=== PATIENT | female | born 1995 | race African-American/Black ===

== ENCOUNTER 2017-12-18 14:17 | Observation (INO) ==
[2017-12-18 15:25] LABS: Basophils # 0.1 K/mcL (0.0-0.2); Basophils % 0.6 %; Eosinophils # 0.5 K/mcL (0.0-0.6); Eosinophils % 5.5 %; Hematocrit 37.6 % (35.3-44.9); Hemoglobin 12.7 g/dL (11.5-15.4); Immature Granulocytes % 0.2 % (0-4); Lymphocytes # 1.8 K/mcL (0.6-4.6); Lymphocytes % 19.7 %; Mean Corpuscular HGB Conc 33.8 g/dL (31.6-35.5); Mean Corpuscular Hemoglobin 28.9 pg (28.0-33.3); Mean Corpuscular Volume 85.6 fL (83.0-100.0); Monocytes # 0.7 K/mcL (0.0-1.3); Monocytes % 7.7 %; Platelet Count 314 K/mcL (140-400); Red Blood Count 4.39 M/mcL (3.82-4.97); Red Cell Distribution Width 14.2 % (11.5-14.5); Segmented Neutrophils % 66.3 %
[2017-12-18 15:42] LABS: Bilirubin,Urine Negative (Negative); Blood,Urine Negative (Negative); Clarity,Urine Clear (Clear); Color,Urine Yellow (Yellow); Glucose,Urine (UA) Normal (Normal); Ketones,Urine Negative (Negative); Leukocyte Esterase,Urine Negative (Negative); Nitrite,Urine Negative (Negative); PH,Urine 7.5 pH Units (5.0-8.0); Protein,Urine Negative (Neg-Trace); Urobilinogen,Urine Normal (Normal)
[2017-12-18 15:43] LABS: BUN/Creatinine Ratio 7 (6-26); Blood Urea Nitrogen 4 mg/dL (6-20); Calcium 9.2 mg/dL (8.6-10.3); Carbon Dioxide 25 mEq/L (23-29); Chloride 108 mEq/L (98-107); Glucose 82 mg/dL (70-105); Osmolality,Calculated 282 (280-300); Potassium 3.7 mEq/L (3.5-5.1); Sodium 138 mEq/L (136-145); Troponin I < 0.03 ng/mL (< 0.04); eGFR For African Americans > 60 (> 60); eGFR For Non-African Americans > 60 (> 60)
--- NOTE | 2017-12-18 15:44 | Emergency Department Note ---
Disposition Clinical Impression: Cough Chest pain Qualifiers: Chest pain type: unspecified Qualified Code(s): R07.9 - Chest pain, unspecified Syncopal episodes Qualifiers: Syncope type: unspecified Qualified Code(s): R55 - Syncope and collapse Disposition: Admitted As Inpatient Condition: Good Instructions: Chest Pain (ED), Syncope (ED) Referrals: Godwin Galo MD [Family Provider] - NONE,PCP [Primary Care Provider] - Forms: ED Satisfaction Letter Time of Disposition: 16:37 General Adult HPI - General Chief complaint: ED Syncope Stated complaint: CP/possible syncope Time Seen by Provider: 12/18/17 14:57 Source: patient Mode of arrival: ambulatory Limitations: no limitations Nursing Notes Reviewed: Yes Vital Signs Reviewed: Yes - History of Present Illness HPI Narrative: Patient is a 22-year-old female that presents emergency Department with chest pain and a syncopal episode. Patient states that she has had a cough for the past week and today she was sitting on the edge of her bed and felt like she was going to throw up so she went to the bathroom and became lightheaded so she laid on the floor. Patient's significant other states that she feels that the patient completely passed out and was not responsive. States that she did regain consciousness. patient reports that she is also having chest pain in the center of her chest without any radiation. Patient states that since her syncopal episode she is continued to have numbness in her left arm. She states that there has been no other numbness or weakness. Patient states that she has had previous syncopal episodes but has never been worked up for this in the past. Pain Scale: 9 - Related Data Previous Rx's Medication Instructions Recorded Amoxicillin 875 mg PO BID #20 tablet 10/22/17 Ibuprofen [Motrin] 600 mg PO Q6-8H PRN #30 tab 10/22/17 Meclizine HCl [Verticalm] 25 mg PO TID PRN #30 tablet 10/22/17 Albuterol Sulfate [Proair 90 mcg IH Q6H #1 aer.[email or web address] 12/16/17 Respiclick] Allergies Allergy/AdvReac Type Severity Reaction Status Date / Time No Known Allergies Allergy Verified 12/18/17 14:21 All systems ED: reviewed and negative except as stated. Cardiovascular: Reports: chest pain Respiratory: Reports: cough, dyspnea Gastrointestinal: Reports: nausea. Denies: abdominal pain, vomiting, diarrhea Past Medical History - Past Medical History Medical history: Reports: asthma Psychiatric history: Reports: no psych history - Social History Smoking Status: Current every day smoker Smokeless Tobacco Status: No Alcohol use: Reports: none Drug use: Reports: none Physical Exam - General Limitations: no limitations General appearance: alert, in no apparent distress - Head Head exam: atraumatic, normocephalic - Eye Eye exam: Present: normal appearance, EOMI - Neck Neck exam: Present: normal inspection, full ROM, trachea midline - Respiratory Respiratory exam: Present: normal lung sounds bilaterally. Absent: respiratory distress, wheezes - Cardiovascular Cardiovascular exam: Present: regular rate, normal rhythm, normal heart sounds, +S1, +S2 - Abdominal Exam Abdominal exam: Present: soft, Non-Tender, normal bowel sounds - Neurological Exam Neurological exam: Present: alert, oriented X3, CN II-XII intact - Expanded Neurological Exam Speech: Present: fluid speech Cranial nerves: EOM function (II, III, IV, ): Normal, facial sensation (V): Normal, facial palsy (VII): Normal, gag reflex (IX): Normal, spinal accessory function (XI): Normal, tongue deviation (XII): Normal Cerebellar function: finger to nose: Normal, heel to charles: Normal Motor strength - LUE: 5/5 Motor strength - RUE: 5/5 Motor strength - LLE: 5/5 Motor strength - RLE: 5/5 Upper motor neuron exam: pronator drift: Absent bilaterally Sensory exam upper extremity: light touch: Abnormal Left (Patient states numbeness on the left upper extremity) Sensory exam lower extremity: light touch: Normal Coma Scale Eye Opening: Spontaneous Coma Scale Motor Response: Obeys Commands Coma Scale Verbal Response: Oriented Coma Scale Total: 15 - Psychiatric Psychiatric exam: Present: normal affect, normal mood - Skin Skin exam: Present: warm, dry, intact Course - Reevaluation(s) Reevaluation #1: I spoke with the patient and we discussed going home versus admission and the patient felt that she needed to be admitted to the hospital and was uncomfortable going home due to the her symptoms and her syncopal episode. Time: 16:36 Vital Signs Temperature 98.4 F 12/18/17 14:18 Pulse Rate 84 12/18/17 14:18 Respiratory Rate 16 12/18/17 14:18 Blood Pressure 149/101 12/18/17 14:18 O2 Sat by Pulse Oximetry 100 12/18/17 14:18 Temperature 98.4 F 12/18/17 14:18 Pulse Rate 84 12/18/17 14:18 Respiratory Rate 16 12/18/17 14:18 Blood Pressure 149/101 12/18/17 14:18 O2 Sat by Pulse Oximetry 100 12/18/17 14:18 Oxygen Delivery Oxygen Delivery Room Air Medical Decision Making - MDM Narrative Medical decision making narrative: Due the patient's only with chest pain and neurological symptoms there is concern for cardiac versus neuro pathology. We will obtain a CBC, BMP, troponin chest x-ray and EKG. Based on the patient having a syncopal episode with sensory deficit in the left upper extremity after that is necessary for the patient to have a CT of the head to rule out possible intracranial pathology. Chest x-ray was negative and the head CT showed no acute intracranial pathology per radiology read. The laboratory testing was unremarkable. After discussion with the patient the patient felt that she needed to be admitted to the hospital and was uncomfortable with being discharged home. I spoke with the hospitalist Dr Calhoun and he has accepted the patient to their service. The patient be admitted to the hospital for further evaluation and management at this time. - Medical Records Medical records reviewed: Yes I reviewed the patient's medical records. - Lab Data Lab results reviewed: Yes I reviewed the patient's lab results. Result diagrams: 12/18/17 15:09 12/18/17 15:09 Lab Results 12/18/17 12/18/17 12/18/17 Range/Units 15: 15:09 15:29 WBC 9.0 (4.3-11.1) K/mcL RBC 4.39 (3.82-4.97) M/mcL Hgb 12.7 (11.5-15.4) g/dL Hct 37.6 (35.3-44.9) % MCV 85.6 (83.0-100.0) fL MCH 28.9 (28.0-33.3) pg MCHC 33.8 (31.6-35.5) g/dL RDW 14.2 (11.5-14.5) % Plt Count 314 (140-400) K/mcL MPV 11.0 (9.4-12.4) fL Immature Gran % 0.2 (0-4) % Seg Neutrophils % 66.3 % Lymphocytes % 19.7 % Monocytes % 7.7 % Eosinophils % 5.5 % Basophils % 0.6 % Neutrophils # 6.0 (1.6-8.9) K/mcL Lymphocytes # 1.8 (0.6-4.6) K/mcL Monocytes # 0.7 (0.0-1.3) K/mcL Eosinophils # 0.5 (0.0-0.6) K/mcL Basophils # 0.1 (0.0-0.2) K/mcL Sodium 138 (136-145) mEq/L Potassium 3.7 (3.5-5.1) mEq/L Chloride 108 H (98-107) mEq/L Carbon Dioxide 25 (23-29) mEq/L BUN 4 L (6-20) mg/dL Creatinine 0.61 (0.60-1.20) mg/dL Est GFR ( Amer) > 60 (> 60) Est GFR (Non-Af Amer) > 60 (> 60) BUN/Creatinine Ratio 7 (6-26) Glucose 82 (70-105) mg/dL Calculated Osmolality 282 (280-300) Calcium 9.2 (8.6-10.3) mg/dL Troponin I < 0.03 (< 0.04) ng/mL Urine Color Yellow (Yellow) Urine Clarity Clear (Clear) Urine pH 7.5 (5.0-8.0) pH Units Ur Specific [place] 1.010 (1.010-1.025) Urine Protein Negative (Neg-Trace) mg/dL Urine Glucose (UA) Normal (Normal) mg/dL Urine Ketones Negative (Negative) mg/dL Urine Blood Negative (Negative) Urine Nitrite Negative (Negative) Urine Bilirubin Negative (Negative) Urine Urobilinogen Normal (Normal) mg/dL Ur Leukocyte Esterase Negative (Negative) Ur Culture Indicated? NO (NO) Urine Test (Negative) 12/18/17 Range/Units 15:29 WBC (4.3-11.1) K/mcL RBC (3.82-4.97) M/mcL Hgb (11.5-15.4) g/dL Hct (35.3-44.9) % MCV (83.0-100.0) fL MCH (28.0-33.3) pg MCHC (31.6-35.5) g/dL RDW (11.5-14.5) % Plt Count (140-400) K/mcL MPV (9.4-12.4) fL Immature Gran % (0-4) % Seg Neutrophils % % Lymphocytes % % Monocytes % % Eosinophils % % Basophils % % Neutrophils # (1.6-8.9) K/mcL Lymphocytes # (0.6-4.6) K/mcL Monocytes # (0.0-1.3) K/mcL Eosinophils # (0.0-0.6) K/mcL Basophils # (0.0-0.2) K/mcL Sodium (136-145) mEq/L Potassium (3.5-5.1) mEq/L Chloride (98-107) mEq/L Carbon Dioxide (23-29) mEq/L BUN (6-20) mg/dL Creatinine (0.60-1.20) mg/dL Est GFR ( Amer) (> 60) Est GFR (Non-Af Amer) (> 60) BUN/Creatinine Ratio (6-26) Glucose (70-105) mg/dL Calculated Osmolality (280-300) Calcium (8.6-10.3) mg/dL Troponin I (< 0.04) ng/mL Urine Color (Yellow) Urine Clarity (Clear) Urine pH (5.0-8.0) pH Units Ur Specific [place] (1.010-1.025) Urine Protein (Neg-Trace) mg/dL Urine Glucose (UA) (Normal) mg/dL Urine Ketones (Negative) mg/dL Urine Blood (Negative) Urine Nitrite (Negative) Urine Bilirubin (Negative) Urine Urobilinogen (Normal) mg/dL Ur Leukocyte Esterase (Negative) Ur Culture Indicated? (NO) Urine Test Negative (Negative) - Radiology Data Radiology results reviewed: Yes I reviewed the patient's radiology results. Chest X-Ray 12/18/17 14:22 IMPRESSION: No acute findings D/ / Betty Milian MD / Betty Milian MD Interpreting Provider: Betty Milian MD Head CT 12/18/17 15:31 IMPRESSION: No acute intracranial abnormality. D/ / Carlito Panda MD / Carlito Panda MD Interpreting Provider: Carlito Panda MD - EKG Data EKG #1 EKG attestation: Yes I reviewed and interpreted this EKG. EKG results narrative: EKG shows a sinus rhythm at a rate of 70 bpm, MI interval of 132, QRS duration 98, QTC of 419 with a normal axis. There is evidence of an incomplete right bundle. This is compared to previous EKG on 03/16/15 showed a sinus rhythm at a rate of 60 bpm with the same right bundle-branch pattern.
--- NOTE | 2017-12-18 16:05 | Emergency Department Note ---
Disposition Clinical Impression: Cough Chest pain Qualifiers: Chest pain type: unspecified Qualified Code(s): R07.9 - Chest pain, unspecified Syncopal episodes Qualifiers: Syncope type: unspecified Qualified Code(s): R55 - Syncope and collapse Disposition: Home, Self-Care Condition: Good Instructions: Chest Pain (ED), Syncope (ED) Forms: ED Satisfaction Letter General Adult HPI - General Chief complaint: ED Syncope Stated complaint: CP/possible syncope Time Seen by Provider: 12/18/17 14:57 Source: patient Mode of arrival: ambulatory Limitations: no limitations Nursing Notes Reviewed: Yes Vital Signs Reviewed: Yes - History of Present Illness Pain Scale: 9 - Related Data Previous Rx's Medication Instructions Recorded Amoxicillin 875 mg PO BID #20 tablet 10/22/17 Ibuprofen [Motrin] 600 mg PO Q6-8H PRN #30 tab 10/22/17 Meclizine HCl [Verticalm] 25 mg PO TID PRN #30 tablet 10/22/17 Albuterol Sulfate [Proair 90 mcg IH Q6H #1 aer.pow.[email or web address] 12/16/17 Respiclick] Allergies Allergy/AdvReac Type Severity Reaction Status Date / Time No Known Allergies Allergy Verified 12/18/17 14:21 Cardiovascular: Reports: chest pain Respiratory: Reports: cough, dyspnea Gastrointestinal: Reports: nausea. Denies: abdominal pain, vomiting, diarrhea Past Medical History - Past Medical History Medical history: Reports: asthma Psychiatric history: Reports: no psych history - Social History Smoking Status: Current every day smoker Smokeless Tobacco Status: No Alcohol use: Reports: none Drug use: Reports: none Physical Exam - General Limitations: no limitations General appearance: alert, in no apparent distress Course - Reevaluation(s) Reevaluation #1: Saw patient with Dr. Landeros. I examined this patient and my medical decision-making was reviewed with the Resident Physician. I agree with the documented findings, disposition and treatment plan as described. This is a 22 year-old female with history of asthma who became nauseated and lightheaded at rest about 2 hours ago. It sounds like she had a syncopal or near -syncopal episode, without falling or sustaining any secondary injury. She reports a minimally productive cough, exertional dyspnea, and sharp chest pain ( mainly when coughing) for the past week. She reported some left upper extremity numbness earlier, but doesn't seem to have this symptom now. Overall, symptoms are improving since arrival in the ED. She denies any associated headache, vision changes, weakness, fever, nausea/vomiting, hemoptysis, leg pain or swelling. On exam, patient is comfortable, stable vitals. Heart, lung, and neuro exams normal. Patient is PERC-negative. We will check EKG, CXR, head CT (because of the numbness she was feeling earlier ), and with continued symptomatic improvement, discharge. Time: 15:59 Vital Signs Temperature 98.4 F 12/18/17 14:18 Pulse Rate 84 12/18/17 14:18 Respiratory Rate 16 12/18/17 14:18 Blood Pressure 149/101 12/18/17 14:18 O2 Sat by Pulse Oximetry 100 12/18/17 14:18 Temperature 98.4 F 12/18/17 14:18 Pulse Rate 84 12/18/17 14:18 Respiratory Rate 16 12/18/17 14:18 Blood Pressure 149/101 12/18/17 14:18 O2 Sat by Pulse Oximetry 100 12/18/17 14:18 Oxygen Delivery Oxygen Delivery Room Air Medical Decision Making - Lab Data Lab results reviewed: Yes I reviewed the patient's lab results. Result diagrams: 12/18/17 15:09 12/18/17 15:09 Lab Results 12/18/17 12/18/17 12/18/17 Range/Units 15:09 15:09 15:29 WBC 9.0 (4.3-11.1) K/mcL RBC 4.39 (3.82-4.97) M/mcL Hgb 12.7 (11.5-15.4) g/dL Hct 37.6 (35.3-44.9) % MCV 85.6 (83.0-100.0) fL MCH 28.9 (28.0-33.3) pg MCHC 33.8 (31.6-35.5) g/dL RDW 14.2 (11.5-14.5) % Plt Count 314 (140-400) K/mcL MPV 11.0 (9.4-12.4) fL Immature Gran % 0.2 (0-4) % Seg Neutrophils % 66.3 % Lymphocytes % 19.7 % Monocytes % 7.7 % Eosinophils % 5.5 % Basophils % 0.6 % Neutrophils # 6.0 (1.6-8.9) K/mcL Lymphocytes # 1.8 (0.6-4.6) K/mcL Monocytes # 0.7 (0.0-1.3) K/mcL Eosinophils # 0.5 (0.0-0.6) K/mcL Basophils # 0.1 (0.0-0.2) K/mcL Sodium 138 (136-145) mEq/L Potassium 3.7 (3.5-5.1) mEq/L Chloride 108 H (98-107) mEq/L Carbon Dioxide 25 (23-29) mEq/L BUN 4 L (6-20) mg/dL Creatinine 0.61 (0.60-1.20) mg/dL Est GFR ( Amer) > 60 (> 60) Est GFR (Non-Af Amer) > 60 (> 60) BUN/Creatinine Ratio 7 (6-26) Glucose 82 (70-105) mg/dL Calculated Osmolality 282 (280-300) Calcium 9.2 (8.6-10.3) mg/dL Troponin I < 0.03 (< 0.04) ng/mL Urine Color Yellow (Yellow) Urine Clarity Clear (Clear) Urine pH 7.5 (5.0-8.0) pH Units Ur Specific [place] 1.010 (1.010-1.025) Urine Protein Negative (Neg-Trace) mg/dL Urine Glucose (UA) Normal (Normal) mg/dL Urine Ketones Negative (Negative) mg/dL Urine Blood Negative (Negative) Urine Nitrite Negative (Negative) Urine Bilirubin Negative (Negative) Urine Urobilinogen Normal (Normal) mg/dL Ur Leukocyte Esterase Negative (Negative) Ur Culture Indicated? NO (NO) Urine Test (Negative) 12/18/17 Range/Units 15:29 WBC (4.3-11.1) K/mcL RBC (3.82-4.97) M/mcL Hgb (11.5-15.4) g/dL Hct (35.3-44.9) % MCV (83.0-100.0) fL MCH (28.0-33.3) pg MCHC (31.6-35.5) g/dL RDW (11.5-14.5) % Plt Count (140-400) K/mcL MPV (9.4-12.4) fL Immature Gran % (0-4) % Seg Neutrophils % % Lymphocytes % % Monocytes % % Eosinophils % % Basophils % % Neutrophils # (1.6-8.9) K/mcL Lymphocytes # (0.6-4.6) K/mcL Monocytes # (0.0-1.3) K/mcL Eosinophils # (0.0-0.6) K/mcL Basophils # (0.0-0.2) K/mcL Sodium (136-145) mEq/L Potassium (3.5-5.1) mEq/L Chloride (98-107) mEq/L Carbon Dioxide (23-29) mEq/L BUN (6-20) mg/dL Creatinine (0.60-1.20) mg/dL Est GFR ( Amer) (> 60) Est GFR (Non-Af Amer) (> 60) BUN/Creatinine Ratio (6-26) Glucose (70-105) mg/dL Calculated Osmolality (280-300) Calcium (8.6-10.3) mg/dL Troponin I (< 0.04) ng/mL Urine Color (Yellow) Urine Clarity (Clear) Urine pH (5.0-8.0) pH Units Ur Specific [place] (1.010-1.025) Urine Protein (Neg-Trace) mg/dL Urine Glucose (UA) (Normal) mg/dL Urine Ketones (Negative) mg/dL Urine Blood (Negative) Urine Nitrite (Negative) Urine Bilirubin (Negative) Urine Urobilinogen (Normal) mg/dL Ur Leukocyte Esterase (Negative) Ur Culture Indicated? (NO) Urine Test Negative (Negative) - Radiology Data Radiology results reviewed: Yes I reviewed the patient's radiology results. CXR IMPRESSION: No acute findings - EKG Data EKG #1 EKG attestation: Yes I reviewed and interpreted this EKG. EKG results narrative: RSR' in V1 Rate: normal Rhythm: NSR [place]/QRS: normal Interpretation: normal EKG
--- NOTE | 2017-12-18 17:56 | Internal Med History&Physical ---
Date of Encounter: 12/18/17 Time of Encounter: 17:53 Internal Medicine - H&P: HPI Chief complaint: syncope Admitted From: Emergency Dept Plans for Post Hospital Care: Home History of present illness: Ms. Woodard is a 22 year old female Patient with history of asthma, no other significant medical problem patient had cough for about a week and then today she felt nauseated decide to proceed to bathroom and then became lightheaded and then passed out afterqward felt numbness of the left arm which is now resolved no seizure activity and then brought to the emergency room emergency room vital signs BP f 149/101 pulses 84 exam is unremarkable patient been admitted for follow evaluation. Denies any chest pain no known cardiac issues EKG is unremarkable Past Med Surg Social Fam HX - Past Medical History Medical history: asthma Psychiatric history: no psych history - Social History Smoking Status: Current every day smoker Smokeless Tobacco Status: No Alcohol use: none Drug use: none Internal Medicine - H&P: Meds No Known Home Drugs 12/18/17 [History] 3 Allergy/AdvReac Type Severity Reaction Status Date / Time No Known Allergies Allergy Verified 12/18/17 14:21 All Systems PM: A 10-system review of systems was performed and is negative for pertinent findings except as documented above in the HPI. - Constitutional Vitals: Temp Pulse Resp BP Pulse Ox 98.4 F 84 16 149/101 100 12/18/17 14:18 12/18/17 14:18 12/18/17 14:18 12/18/17 14:18 12/18/17 14:18 - Head Head exam: Present: atraumatic, normocephalic - Eye Eye exam: Present: PERRL, conjuntiva pink, sclera anicteric Pupils: Present: PERRL - Neck Neck exam general surgery: Present: supple, trachea midline. Absent: lymphadenopathy - Respiratory Respiratory exam: Present: CTAB. Absent: accessory muscle use, rales, rhonchi, wheezes - Cardiovascular Cardiovascular exam: Present: RRR, +S1, +S2. Absent: diastolic murmur, gallop, rubs, systolic murmur - GI/Abdominal GI/Abdominal exam: Present: normal bowel sounds, soft, no peritoneal signs. Absent: distended, tenderness - Extremities Exam Extremities exam: Present: warm, radial pulses palpable and symmetrical. Absent : calf tenderness, cyanotic, pedal edema - Neurological Exam Neurological exam: Present: CN II-XII intact, oriented X3, no focal deficits. Absent: pronater drift, facial droop, speech deficit - Skin Skin exam: Present: dry, intact Internal Med - H&P Results - Labs CBC & Chem 7: 12/18/17 15:09 12/18/17 15:09 - Assessment and plan (1) Chest pain Current Visit: Yes Status: Acute Assessment and plan: Atypical chest pain following coughing episodes most likely noncardiac Qualifiers: Chest pain type: unspecified Qualified Code(s): R07.9 - Chest pain, unspecified (2) Syncopal episodes Current Visit: Yes Status: Acute Assessment and plan: Syncope preceded by nausea and then lightheadedness but is suggestive of vasovagal varicose syncope versus vasodepressive syncope will obtain 2-D echo and monitor overnight Qualifiers: Syncope type: unspecified Qualified Code(s): R55 - Syncope and collapse (3) Asthma Current Visit: Yes Status: Acute Assessment and plan: No active wheezing at present Qualifiers: Asthma severity: unspecified severity Asthma persistence: unspecified Asthma complication type: unspecified Qualified Code(s): J45.909 - Unspecified asthma, uncomplicated - Time Spent With Patient Total time spent is greater than 50% in coordination of care (as documented) at patient's floor/unit and/or counseling patient:
[2017-12-18] MEDS ORDERED: Naloxone 0.4 MG/ML INJ IVP PRN (18:04)
[2017-12-18] MEDS ORDERED: traMADol 50 MG TABLET PO PRN (18:04)
[2017-12-18] MEDS ORDERED: Acetaminophen 325 MG TABLET PO PRN (18:04)
[2017-12-18 19:36] LABS: Amphetamine Screen,Urine Negative ng/mL (Cutoff=1000); Barbiturate Screen,Urine Negative ng/mL (Cutoff=200); Benzodiazepines Screen,Urine Negative ng/mL (Cutoff=200); Cannabinoid Screen,Urine Positive ng/mL (Cutoff = 50); Cocaine Screen,Urine Negative ng/mL (Cutoff= 300); Opiate Screen,Urine Negative ng/mL (Cutoff=300); Phencyclidine Screen,Urine Negative ng/mL (Cutoff=25)
[2017-12-18] MEDS: Ipratropium/Albuterol Neb 3 ML IH PRN (21:41)
[2017-12-18] MEDS: 0.9 % Sodium Chloride 1,000 ML IVC SCH (22:18)
[2017-12-18] MEDS ORDERED: Nitroglycerin 0.4 MG TAB.SUBL SL PRN (22:57)
--- NOTE | 2017-12-18 23:13 | Event Note ---
Date of Encounter: 12/18/17 Time of Encounter: 23:10 The patient c/o chest pain prior to receiving a breathing treatment. She rates the pain 10/10 and describes it as stabbing. Bp is 119/77, HR is 81. When I entered the room the patient was lying in the bed and appeared comfortable. 12 lead EKG, nitro prn if pain persists, and 1 stat troponin was ordered for now. The patient has serial troponins ordered. Waiting results.
[2017-12-19 02:16] LABS: Alanine Aminotransferase 16 Units/L (7-52); Albumin/Globulin Ratio 1.6 (1.1-2.2); Alkaline Phosphatase 65 Units/L (34-104); Aspartate Amino Transferase 17 Units/L (13-39); BUN/Creatinine Ratio 9 (6-26); Bilirubin,Total 0.2 mg/dL (0.3-1.0); Blood Urea Nitrogen 5 mg/dL (6-20); Carbon Dioxide 25 mEq/L (23-29); Chloride 106 mEq/L (98-107); Chol/HDL Ratio 2.7 (0-4.9); Cholesterol 134 mg/dL (< 200); Globulin 2.5 g/dL (2.4-3.5); Glucose 88 mg/dL (70-105); HDL Cholesterol 50 mg/dL (40-59); LDL Cholesterol,Calculated 67 mg/dL (0-99); Magnesium 1.7 mg/dL (1.6-2.6); Osmolality,Calculated 283 (280-300); Potassium 3.5 mEq/L (3.5-5.1); Sodium 138 mEq/L (136-145); Total Protein 6.5 g/dL (6.4-8.9); Triglycerides 85 mg/dL (< 150); eGFR For African Americans > 60 (> 60); eGFR For Non-African Americans > 60 (> 60)
[2017-12-19] MEDS: 0.9 % Sodium Chloride 1,000 ML IVC SCH ×2 (04:37→08:40)
--- NOTE | 2017-12-19 11:37 | Discharge Summary ---
Orders not resulted at time of discharge: Pending orders 12/18/17 22:56 EKG [ECG 12 lead ECG] [ECG] Stat Date of Encounter: 12/19/17 Time of Encounter: 11:35 - Discharge Diagnosis (1) Chest pain Priority: Secondary Status: Acute Assessment and Plan: atypical chest pain most likely non cardiac Qualifiers: Chest pain type: unspecified Qualified Code(s): R07.9 - Chest pain, unspecified (2) Syncopal episodes Priority: Primary Status: Acute Assessment and Plan: vaso vagal syncope Qualifiers: Syncope type: unspecified Qualified Code(s): R55 - Syncope and collapse (3) Asthma Priority: Secondary Status: Acute Assessment and Plan: no active wheezing Qualifiers: Asthma severity: unspecified severity Asthma persistence: unspecified Asthma complication type: unspecified Qualified Code(s): J45.909 - Unspecified asthma, uncomplicated Hospital course: Ms. Woodard is a 22 year old female - Time Spent with Patient Total time spent providing and/or coordinating discharge services: - Discharge Medications Home Medications: No Known Home Drugs 12/18/17 [History] Allergies/Adverse Reactions: 3 Allergy/AdvReac Type Severity Reaction Status Date / Time No Known Allergies Allergy Verified 12/18/17 14:21 Date of admission: 12/18/17 17:15 Primary care physician: PCP NONE Discharging clinician: Lisa Cedillo Anticipated date of discharge: 12/19/17 - Constitutional Vitals: Temp Pulse Resp BP Pulse Ox 97.5 F L 70 19 135/80 99 12/19/17 06:47 12/19/17 06:47 12/19/17 06:47 12/19/17 06:47 12/19/17 06:47 - Patient Status Disposition: Home, Self-Care Functional capacity at discharge: independent ambulation Overall status at discharge: patient is progressing back to baseline - Discharge Instructions Follow Up With: Godwin Galo MD [Family Provider] - NONE,PCP [Primary Care Provider] - - Diet and Activity Activity: increase activity as tolerated Diet: advance to your usual diet
[2017-12-19] MEDS: Ipratropium/Albuterol Neb 3 ML IH PRN (11:48)
[2017-12-19 11:56] VITALS: BP 102/68
--- NOTE | 2017-12-22 14:15 | Electrocardiograph Report ---
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
--- NOTE | 2017-12-22 15:46 | Electrocardiograph Report ---
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
== END 2017-12-19 12:17 | disposition home or self-care (01) ==
LOC: EMEROO 14:17 → 3BNU 14:17
PROVIDERS: ADMIT Internal Medicine; ATTEND Internal Medicine